=== PATIENT | male | born 1960 | race Caucasian/White ===

== ENCOUNTER 2024-12-04 09:28 | Outpatient (CLI) | payer BC ==
[2024-12-04] MEDS ORDERED: Gadobenate Dimeglumine 2 ML, Sodium Chloride 0.9% 250 ML 10 ML, Iopamidol 8 ML, Lidocai... FS ONE (09:30)
== END 2024-12-04 09:29 | disposition home or self-care (01) ==
LOC: CSHRAD 09:28
PROVIDERS: ATTEND Specialist
DX: M25.511 Pain in right shoulder (principal); S49.91XA Unspecified injury of right shoulder and upper arm, initial encounter; S46.011D Strain of muscle(s) and tendon(s) of the rotator cuff of right shoulder, subsequent encounter; M94.8X1 Other specified disorders of cartilage, shoulder
CPT/HCPCS: 23350; 77002; A9577; J0166; J7050; Q9967